=== PATIENT | male | born 1935 | race Caucasian/White ===

== ENCOUNTER → 2016-08-25 | Outpatient (CLI) | payer OTHER ==
[~2016-08-25] MED LIST: ASCO100016; ATEN25TA PO; ATOR40TA16 PO; COZA50TA PO; FENO54TA PO; GLIP5 PO; GLIP5TAB8 PO; GLUCTAB PO; LANTUS2P SQ; LOMO PO; LOSA25TA PO; METF1000 PO; ZOFR4TAB3 SL
--- NOTE | 2016-08-28 09:29 | RSPPFT ---
DATE OF PROCEDURE: 08/25/16 COMMENTS: VOLUMES DYNAMIC: FVC and FEV1 normal. STATIC: TLC, RV and FRC normal. FLOWS: FEV1% mildly reduced; FEF 25-75 moderately reduced. DIFFUSION: Moderately reduced. FLOW VOLUME LOOP: Terminal airflow obstruction. IMPRESSION: Mild obstructive ventilatory defect with a mild to moderate reduction in diffusion. Airways resistance is normal but there is improvement post-bronchodilator.
== END ==
LOC: PHRSP 08:39
PROVIDERS: ATTEND Internal Medicine
DX: J44.9 Chronic obstructive pulmonary disease, unspecified (principal)
CPT/HCPCS: 94060; 94620; 94726; 94729

== ENCOUNTER 2016-09-07 07:55 | Day surgery (SDC) | payer OTHER ==
[~2016-09-07] VITALS: Ht 177.8 cm; Wt 82.7 kg
[2016-09-07] VITALS (8 sets, daily range): BP systolic 94–139; BP diastolic 55–98; PULSE 50–97; RESP 16–20; TEMP 97.7–98.1; O2SAT 94–98
[~2016-09-07 07:55] MED LIST changes: -ASCO100016; -ATEN25TA PO; -ATOR40TA16 PO; -FENO54TA PO; -GLIP5TAB8 PO; -LANTUS2P SQ; -LOSA25TA PO; -METF1000 PO
[2016-09-07] MEDS ORDERED: SODIUM CHLOR 0.9% 1000 ML IV SCH (08:00)
[2016-09-07] MEDS ORDERED: ASCO100016 (08:15)
[2016-09-07] MEDS ORDERED: LOSA25TA PO (08:15)
[2016-09-07] MEDS ORDERED: LANTUS2P SQ (08:15)
[2016-09-07] MEDS ORDERED: FENO54TA PO (08:15)
[2016-09-07] MEDS ORDERED: GLIP5TAB8 PO (08:15)
[2016-09-07] MEDS ORDERED: METF1000 PO (08:15)
[2016-09-07] MEDS ORDERED: ATEN25TA PO (08:15)
[2016-09-07] MEDS ORDERED: ATOR40TA16 PO (08:15)
[2016-09-07] MEDS ORDERED: SODIUM CHLORIDE 2 ML FLUSH PRN IV FLUSH (08:30)
[2016-09-07] MEDS ORDERED: SODIUM CHLORIDE 2 ML FLUSH BID IV FLUSH SCH (09:00)
[2016-09-07 09:02] LABS: HEMATOCRIT 36.3 % (39.0-51.0); MEAN CELL VOLUME 91.5 FL (80.0-100.0); MEAN CORPUSCULAR HEMOGLOBIN 29.8 PG (27.0-34.0); MEAN CORPUSCULAR HGB CONC 32.5 % (32.0-36.0); PLATELET COUNT 94 TH/MM3 (150-450); RED BLOOD COUNT 3.97 MIL/MM3 (4.50-5.90); RED CELL DISTRIBUTION WIDTH 15.2 % (11.6-17.2); WHITE BLOOD COUNT 59.6 TH/MM3 (4.0-11.0)
[2016-09-07 09:09] LABS: APTT (PATIENT) 24.5 SEC (24.3-30.1); PROTHROMBIN TIME - PATIENT 10.8 SEC (9.8-11.6)
[2016-09-07 09:13] LABS: HEMO FLAGS AUTO DIFF
[2016-09-07] MEDS ORDERED: MIDAZOLAM HCL 5 MG/5 ML VIAL ONE (09:26)
[2016-09-07] MEDS ORDERED: fentaNYL CITRATE 250 MCG/5 ML AMP ONE (09:26)
[2016-09-07 10:02] LABS: NEUTROPHIL # MANUAL DIFF 5.4 TH/MM3 (1.8-7.7); PLATELET ESTIMATE SMEAR LOW (NORMAL); PLATELET MORPHOLOGY NORMAL (NORMAL); POLYS (SEG NEUTROPHILS) 9 % (16-70); SCAN/DIFF FINAL DIFF MANUAL; WBC DIFF SAMPLE 100
--- NOTE | 2016-09-07 10:30 | RADRPT ---
EXAM DATE/TIME: 09/07/2016 09:35 [facility] COMPARISON: No previous studies available for comparison. INDICATIONS : Right lung mass. SEDATION TIME: 30 minutes BIOPSY SITE: Right MEDICATION(S): 1.) 2 mg midazolam (Versed) IV 2.) 100 mcg fentanyl (Sublimaze) IV DEVICE(S): 1.) 20 gauge Temno core biopsy needle MEDICAL HISTORY : Chronic obstructive pulmonary disease. Hypertension. Diabetes mellitus type 2. SURGICAL HISTORY : None. ENCOUNTER: Initial ACUITY: 1 day PAIN SCORE: 0/10 LOCATION: Right chest A total of two core specimen(s) were obtained and sent to the laboratory for pathologic evaluation. PROCEDURE: 1. CT guided lung biopsy. 2. Conscious sedation with continuous EKG and oximetry monitoring. 3. EKG and oximetry remained stable throughout the procedure. Prior to the procedure informed consent was obtained. Any appropriate prior imaging studies were rev iewed. Using automated exposure control and adjustment of the mA and/or kV according to patient size, radiation dose was kept as low as reasonably achievable to obtain optimal diagnostic quality images. DICOM format image data is available electronically for review and comparison. The site was prepped in a sterile fashion. Full sterile technique was used, including cap, mask, davon rile gloves and gown and a large sterile sheet. Hand hygiene and 2% chlorhexidine and/or betadine/al cohol prep was utilized per protocol for cutaneous antisepsis. The skin and subcutaneous tissues wer e infiltrated with local anesthetic solution. Under direct CT guidance 18 gauge blunt needle was placed down to the mass in the right upper lobe an d cores obtained. Material was sent for pathology and culture. Follow-up CT scan reveals no pneumothorax. Conscious sedation was performed with the prescribed dosages and duration as above in the presence of an independent trained radiology nurse to assist in the monitoring of the patient. EKG and oximetry remained stable throughout the procedure. The patient tolerated the procedure well and there were no complications. The patient was sent to Radiology Outpatient Unit in stable condition. CONCLUSION: Uncomplicated CT guided biopsy. Pathology and culture are pending. Tony Pabon MD FACR on September 07, 2016 at 10:27 Board Certified Radiologist. This report was verified electronically.
--- NOTE | 2016-09-07 12:47 | RADRPT ---
EXAM DATE/TIME: 09/07/2016 12:29 [facility] COMPARISON: No previous studies available for comparison. INDICATIONS : Evaluate for pneumothorax post right lung biopsy MEDICAL HISTORY : Chronic obstructive pulmonary disease. Hypertension Diabetes mellitus type II. SURGICAL HISTORY : None. ENCOUNTER: Initial ACUITY: 1 day PAIN SCORE: 3/10 LOCATION: Right chest FINDINGS: A single portable frontal view of the chest shows a focal parenchymal opacity within the right midlun g. The remaining lungs are clear. No effusion or pneumothorax. Heart is normal in size. CONCLUSION: No pneumothorax following lung biopsy. Right midlung density. Likely relating to the area biopsied. Paddy Jolley Jr., MD on September 07, 2016 at 12:45 Board Certified Radiologist. This report was verified electronically.
== END 2016-09-07 14:10 | disposition home or self-care (01) ==
LOC: HRAD 07:55 → HRIP 07:56 → HRAD 14:10
PROVIDERS: ATTEND Internal Medicine Hematology & Oncology
DX: R91.8 Other nonspecific abnormal finding of lung field (principal); C91.10 Chronic lymphocytic leukemia of B-cell type not having achieved remission; J44.9 Chronic obstructive pulmonary disease, unspecified; I25.10 Atherosclerotic heart disease of native coronary artery without angina pectoris; I12.9 Hypertensive chronic kidney disease with stage 1 through stage 4 chronic kidney disease, or unspecified chronic kidney disease; N18.9 Chronic kidney disease, unspecified; E11.22 Type 2 diabetes mellitus with diabetic chronic kidney disease; E78.00 Pure hypercholesterolemia, unspecified
CPT/HCPCS: 32405; 71010; 77012; 81235; 85007; 85027; 85610; 85730; 87015; 87070; 87102; 87116; 87176; 87205; 87206; 88305; 88333; 88341; 88342; 88360; 88377; 88381; J2250; J3010; J7030